=== PATIENT | female | born 1990 | race Caucasian/White ===

== ENCOUNTER 2019-10-08 08:17 | Inpatient (IN) | payer BC ==
[2019-10-08] MEDS ORDERED: hydrALAZINE 20 MG/ML VIAL SLOW IVP PRN ×2 (08:38→09:58)
[2019-10-08 09:33] VITALS: BMI 39.8
--- NOTE | 2019-10-08 09:48 | ULT ---
EXAM: US [facility] PROVIDED CLINICAL HISTORY: Estimated weight and placental location COMPARISON: None FINDINGS: Single live intrauterine gestation is documented in vertex presentation, 40 weeks 0 days by joseph friedman. Estimated weight is 3906 +/- 578 g. Placenta is anteriorly located, without evidence for previa. Cervix is not well seen. heart rate of 131 bpm is documented. anatomic survey was not performed. Amniotic fluid was not quantified. biometry: BPD 9.2 cm 37 weeks 3 days Head circumference 35.2 cm 41 weeks 0 days Abdominal circumference 36.3 cm 40 weeks 1 day Femur length 7.82 cm 40 weeks 0 days IMPRESSION: Single live intrauterine gestation as described.
[2019-10-08] MEDS ORDERED: Lidocaine 1% (PF) 30 ML VIAL SC PRN (09:58)
[2019-10-08] MEDS ORDERED: Ondansetron PF 4 MG/2 ML Vial IVP PRN ×2 (09:58→13:39)
[2019-10-08] MEDS ORDERED: Butorphanol Tartrate 1 MG/ML VIAL SLOW IVP PRN (09:58)
[2019-10-08] MEDS ORDERED: NS / Oxytocin 40 units/1000ml 1,000 ML IV PRN (09:58)
[2019-10-08] MEDS ORDERED: HYDROcodone/Acetaminophen 5/325 mg Tablet PO PRN ×2 (09:58)
[2019-10-08] MEDS ORDERED: Ibuprofen 800 MG TAB PO PRN (09:58)
[2019-10-08] MEDS ORDERED: Promethazine HCl 25 MG/ML VIAL IM PRN ×2 (09:58→13:39)
[2019-10-08] MEDS ORDERED: Methylergonovine 0.2 MG/ML VIAL IM PRN (09:58)
[2019-10-08] MEDS: Lactated Ringer's 1,000 ML IV SCH ×2 (10:15→22:24)
[2019-10-08] MEDS ORDERED: CEFAZOLIN 2 GM in Premix Bag 1 BAG IVPB SCH (10:15)
--- NOTE | 2019-10-08 10:44 | PDOC.LDHP ---
Labor and Delivery H&P Current gestational age (weeks): 42 Due date: 09/24/19 Grav: 3 Para: 2 OB History Details: #1: term primary LTCS for NRFHTs #2: Successful term of 9#10oz. #3: post-term sIUP w/ no complications thus far Current complications: other (h/o LTCS w/ successful as well as possible GDM but no 3 hour GTT for confirmation) Current medications: pre- vitamins Previous surgical history: low tranverse CS Allergies/Adverse Reactions: Allergies Allergy/AdvReac Type Severity Reaction Status Date / Time No Known Allergies Allergy Verified 10/08/19 09:04 Social history: none - Physical Exam Vital signs reviewed and normal: yes General: NAD, resting, breathing through contractions Heart: RRR Lungs: CTAB Abdomen: gravid Extremeties: no edema FHT: category 2 (periods of moderate variability), acceleration absent, late decelerations (2 late decels w/ 2 random contractions since monitoring began) - Vaginal Exam cm dilated: 3 Effacement: 25% Station: -3 - OB Labs Blood type: B RH: positive Antibody Screen: negative HIV: negative RPR: negative HEPSAg: negative 1 hour GCT: positive (169) 3 hour GTT: no 3 hour done/diet controlled per patient GBS: negative Urine drug screen: negative Rubella: immune - Assessment 29 YO @ 42 WGA presenting for IOL. - Plan Plan: admit to L&D -: sIUP @ 42 WGA: - No regular contractions noted on monitor since arrival but cat 2 strip thus far 2/2 only some periods of moderate variability since arrival. FHTs difficult to detect for long periods of time w/o interruption. SVE 02/07/high @ 0935. - Patient's vitals have remained stable since arrival. - No complications thus far in but will obtain a basic US to assess placental location, CAMILO, and EFW. - Will continue to monitor but will admit to L&D for either IOL vs. rLTCS based on pending /maternal status, sono, and laboratories. Dispo: Admit to L&D for IOL vs. rLTCS pending labs, imaging & and maternal status. Addendum - Attending - Attending Attestation Date/Time: 10/08/19 0834 I personally evaluated the patient and discussed the management with Dr. Galdamez. I agree with the History, Examination, Assessment and Plan documented above.
[2019-10-08 10:55] LABS: Amnisure Test No Membranes Rupture (No Rupture)
[2019-10-08 10:56] LABS: Amnisure Internal Control QC ACCEPTABLE (ACCEPTABLE)
[2019-10-08 11:09] LABS: Hemoglobin 12.3 g/dL (12.0-16.0); Mean Corpuscular HGB CONC 34.2 g/dL (32.0-36.0); Mean Corpuscular Hemoglobin 28.3 pg (27.0-31.0); Mean Corpuscular Volume 82.7 fL (78.0-98.0); Mean Platelet Volume 8.1 fL (7.4-10.4); Platelet Count 257 thou/uL (130-400); RBC Distribution Width 13.6 % (11.5-14.5); Red Blood Cell (RBC) Count 4.34 mill/uL (4.20-5.40)
--- NOTE | 2019-10-08 11:24 | PDOC.LDPN ---
Labor & Delivery Progress Note - Subjective Subjective: comfortable - Objective Vital signs reviewed and normal: yes General: NAD, resting Uterine fundus: non tender SVE: 02/07/high @ 0935 FHT: category 2 (periods of moderate variability but no accels since arrival w/ 2 late decels w/ 2 random contractions) [place] contractions every: no regular contractions noted Resuscitative measures: maternal IV fluids - Assessment (1) Post-term , 40-42 weeks of gestation Code(s): O48.0 - POST-TERM Current Visit: Yes Status: Acute Plan: other -: 29YO @ 42 WGA who presents to L&D for IOL for post-term . sIUP @ 42 WGA: - Only contractions noted on monitor since arrival w/ late decels noted w/ each. Persistent Cat 2 strip. SVE 02/07/high @ 0935. - Patient's vitals have remained stable since arrival. - Sono significant for low CAMILO and EFW of ~9lbs. No placenta previa. - Due to low CAMILO patient amnisure was also obtained which was negative. - Given fetus's poor response to few contractions that have been noted in conjunction with minimal variability and no accels w/ no s/s of being in active labor feel best way to proceed is with a rLTCS avoid a likely possible emergency LTCS should fetus not tolerate IOL. Possible GDM vs. glucose intolerance in : - 1hr GTT elevated at 169 but no 3hr was done for formal diagnosis. - Will monitor PP vs. intrapartum based on whether or not we proceed w/ IOL vs. rLTCS. Dispo: Counseled patient on risks & benefits of proceeding with a medical IOL vs. rLTCS and will allow she and the biological parents to discuss options & decide how to proceed.
[2019-10-08] MEDS ORDERED: Bicitra 30 ML UDCUP PO SCH (11:30)
--- NOTE | 2019-10-08 11:35 | PDOC.BPN ---
- Brief Progress Note 29YO @ 42 WGA here for post-term IOL. FHTs unchanged from prior examination w/ persistent cat 2 strip with periods of moderate variability and no accels. After a thorough discussion w/ biological parents & shredding specialist, patient elected to proceed with a CLEM rLTCS to minimize risks to both herself and the baby. Will therefore proceed with rLTCS at this time.
[2019-10-08 11:53] LABS: Syphilis Antibody Nonreactive (Nonreactive); Syphilis Antibody Index 0.03 S/CO (<1.00 Non-Reactive)
[2019-10-08 11:54] LABS: HBSAg Index 0.18 S/CO (0-0.99); Hep B Surf Ag Non-Reactive S/CO (NonReactive)
[2019-10-08] MEDS ORDERED: MORPHINE 5 MG/10 ML PF VIAL ONE (12:40)
[2019-10-08] MEDS ORDERED: Oxytocin 10 UNITS/ML VIAL ONE ×2 (12:41→13:58)
[2019-10-08] MEDS ORDERED: Dexamethasone 4 mg/ml Vial ONE (12:41)
[2019-10-08] MEDS ORDERED: ePHEDrine/0.9% NaCl/PF SYRINGE 50 mg/10 ml ONE (12:41)
[2019-10-08] MEDS ORDERED: Ondansetron PF 4 MG/2 ML Vial ONE ×2 (12:41→14:57)
[2019-10-08] MEDS ORDERED: Methylergonovine 0.2 MG/ML VIAL ONE (13:00)
[2019-10-08] MEDS ORDERED: Carboprost 250 MCG/ML AMP ONE (13:00)
[2019-10-08] MEDS ORDERED: Promethazine HCl 25 MG SUPP PR PRN (13:39)
[2019-10-08] MEDS ORDERED: diphenhydrAMINE 50 MG/ML VIAL IVP PRN (13:39)
[2019-10-08] MEDS ORDERED: Naloxone HCl 0.4 mg/ml Vial IV PRN (13:39)
[2019-10-08] MEDS ORDERED: Naloxone HCl 0.4 mg/ml Vial IVP PRN ×2 (13:39)
[2019-10-08] MEDS ORDERED: Communication Order-Pharmacy FS SCH (13:45)
[2019-10-08 14:06] LABS: Actual Bicarbonate (HCO3a) 16.5 mEq/L (22-28); Base Excess (BEa) -12.5 mEq/L (-2.0 to +3.0)
[2019-10-08 14:08] LABS: Actual Bicarbonate (HCO3v) 18 mEq/L (22-28); Base Excess -12.1 mEq/L (-2.0 to +3.0)
[2019-10-08 14:09] LABS: pH (Cord, venous) 7.13 (7.32-7.43)
[2019-10-08] MEDS ORDERED: Promethazine HCl 25 MG/ML VIAL ONE (15:13)
[2019-10-08] MEDS ORDERED: Ketorolac Tromethamine 30 MG/ML VIAL ONE (15:38)
--- NOTE | 2019-10-08 16:16 | OP ---
DATE OF PROCEDURE: 10/08/2019 PREOPERATIVE DIAGNOSES: 1. A 42-week intrauterine . 2. Previous section x1. 3. Nonreassuring status. 4. Anhydramnios. POSTOPERATIVE DIAGNOSES: 1. A 42-week intrauterine . 2. Previous section x1. 3. Nonreassuring status. 4. Anhydramnios. 5. Dense pelvic adhesions. 6. Meconium-stained amniotic fluid. PROCEDURES PERFORMED: 1. Repeat low-transverse section. 2. Lysis of adhesions. DOUGH MIXING MACHINE OPERATOR: Leatha Galdamez MD. ANESTHESIA: Spinal. COMPLICATIONS: None. QUANTITATIVE BLOOD LOSS: 477ml INDICATIONS: The patient presented to Labor and Delivery from [facility] for 42-week induction with a history of previous x1, desiring a TOLAC. The patient is a surrogate. Upon arrival, she was placed on the monitor and the baby was noted to have spontaneous late decelerations with contractions. Ultrasound was performed, which showed anhydramnios. Due to these findings, it was recommended to proceed with a repeat low-transverse section rather than induction. DESCRIPTION OF PROCEDURE: The patient was taken to the operating room, where spinal anesthesia was attained without difficulty. She was prepared and draped in normal sterile fashion in the dorsal supine position with a leftward tilt. A Pfannenstiel skin incision was made with a scalpel and carried down to the underlying layer of fascia. The fascia was incised in the midline and extended laterally with Flores scissors. The fascia was dissected off the rectus muscle sharply. The rectus muscles were in the midline and the peritoneum was identified and entered. There were dense adhesions of the anterior uterus to the anterior abdominal wall, which were cut down sharply and tied with free ties. The bladder was visualized and then filmy adhesions were dissected down as well. Blake O retractor was placed in the abdomen. A lower uterine segment was incised in a transverse fashion with the scalpel. The incision was extended with cephalocaudal traction. The 's head was delivered atraumatically followed by the body. The cord was clamped and cut and the was handed off to the awaiting NICU team. Cord segment was collected for cord gas and the placenta was delivered spontaneously. The uterus was cleared of all clots and debris. The uterine incision was repaired in a running locked fashion with Monocryl in 2 layers with good hemostasis. The abdomen was thoroughly irrigated. The area of the adhesions on the anterior uterus was cauterized and then FloSeal was added for extra hemostasis. The fascia was repaired in a running fashion with 0 PDS. The subcutaneous tissue was reapproximated with plain gut and the skin was closed with 4-0 Monocryl. The patient tolerated the procedure well. Sponge, lap, and needle counts were correct x2. The patient was taken to the recovery room in stable condition. Job ID: [id number] [facility]
[2019-10-08] MEDS: Ketorolac Tromethamine 30 MG/ML VIAL IVP PRN (16:20)
[2019-10-08] MEDS ORDERED: Scopolamine 1.5 mg/72 hour Patch TD SCH (16:30)
[2019-10-08 16:42] LABS: Amphetamine Not Detected (NotDetected); Barbiturates Screen Not Detected (NotDetected); Benzodiazepine Screen Not Detected (NotDetected); Cocaine Metabolite Screen Not Detected (NotDetected); Medtox Control Line Valid? VALID (VALID); Medtox Reader # READER 1; Methadone Not Detected (NotDetected); Methamphetamine Not Detected (NotDetected); Opiate Screen Not Detected (NotDetected); Oxycodone Screen Not Detected (NotDetected); Phencyclidine (PCP) Not Detected (NotDetected); THC/Cannabinoid Screen Detected (NotDetected); Tricyclic Screen Not Detected (NotDetected)
[2019-10-08] MEDS ORDERED: Lanolin Ointment 7 GM TUBE TOP PRN (17:05)
[2019-10-08] MEDS: Docusate Calcium (SURFAK) 240 MG CAP PO SCH (22:24)
[2019-10-09] MEDS: Ketorolac Tromethamine 30 MG/ML VIAL IVP PRN (00:20)
[2019-10-09] MEDS ORDERED: Butorphanol Tartrate 1 MG/ML VIAL SLOW IVP PRN (01:45)
[2019-10-09] MEDS ORDERED: Acetaminophen/Codeine 30-300mg Tablet PO PRN (01:45)
[2019-10-09] MEDS: Lactated Ringer's 1,000 ML IV SCH ×3 (04:16→18:24)
[2019-10-09 05:22] LABS: Hemoglobin 10.8 g/dL (12.0-16.0); Mean Corpuscular HGB CONC 33.9 g/dL (32.0-36.0); Mean Corpuscular Hemoglobin 28.8 pg (27.0-31.0); Mean Corpuscular Volume 84.8 fL (78.0-98.0); Mean Platelet Volume 8.5 fL (7.4-10.4); Platelet Count 233 thou/uL (130-400); RBC Distribution Width 13.6 % (11.5-14.5); Red Blood Cell (RBC) Count 3.74 mill/uL (4.20-5.40); White Blood Cell (WBC) Count 18.5 thou/uL (4.8-10.8)
--- NOTE | 2019-10-09 07:51 | PDOC.PP ---
Post Progress Note Post Day #: 1 Subjective: Patient reports feeling well this AM. Was very nauseous overnight requiring a scopolamine patch for relief but has been tolerating fluids & bland foods PO since early this AM. Reports pain is well-controlled. Ambulating normally but not yet voiding since melchor still in place. Passing gas but no BM. Pumping breastmilk for baby & states that is going well. States bleeding is menu planner than a period & denies passing any large clots. PO intake tolerated: yes Flatus: yes Ambulation: yes Vital Signs (12 hours) Temp Pulse Resp BP Pulse Ox 10/09/19 03:15 98.5 F 67 16 107/56 L 10/09/19 00:20 97.8 F 76 16 104/50 L 10/08/19 20:00 97.5 F L 66 16 111/55 L 96 Weight Weight 105.233 kg - Physical Examination General: NAD Cardiovascular: no m/r/g, RRR Respiratory: clear to auscultation bilaterally, non-labored breathing Abdominal: + bowel sounds, lochia, no distention, appropriately TTP Fundus firm & at: umbilicus Extremities: negative homans (B) Skin: CS incision dry & intact, no rash Neurological: no gross focal deficits Psychiatric: A&Ox3, normal affect Result Diagrams: 10/09/19 04:18 Additional Labs: Post Labs Blood Type B POSITIVE 10/08/19 12:07 Hep Bs Antigen Non-Reactive S/CO (NonReactive) 10/08/19 10:36 (1) Post-term , 40-42 weeks of gestation Code(s): O48.0 - POST-TERM Status: Resolved (2) S/P repeat low transverse Code(s): Z98.891 - HISTORY OF UTERINE SCAR FROM PREVIOUS SURGERY Status: Acute (3) Acute blood loss anemia Code(s): D62 - ACUTE POSTHEMORRHAGIC ANEMIA Status: Acute - Assessment/Plan 29YO who is PP day #1 s/p rLTCS for NRFHTs @ 42 WGA. s/p r LTCS day #1: - Ambulating normally, tolerating PO, & passing flatus but no BM yet. Pain well- controlled. Bleeding minimal & incision site clean, dry & intact. - Continue routine post-C/S care w/ likely anticipated d/c home tomorrow pending clinical course. acute blood loss anemia: - QBL of 578mL since delivery w/ H/H drop from 12.3/35.9 to 10.8/31.7 this AM. Patient asymptomatic. - Will continue to monitor vitals & continue PNVs & PO iron PP. Glucose intolerance in vs. GDM: - Patient has been receiving Q12H accuchecks since admission. First 2 low but latest mildly elevated at 120. Will discontinue. THC positive UDS: - UDS + for THC. Will notify nursery in case needs testing but no need to consult CM as will be going to live with biological parents. Dispo: Continue routine PP C/S care w/ likely d/c home tomorrow pending clinical course. Addendum - Attending - Attending Attestation Date/Time: 10/11/19 4055 I personally evaluated the patient and discussed the management with Dr. Galdamez. I agree with the History, Examination, Assessment and Plan documented above.
[2019-10-09] MEDS ORDERED: FLU VACC QS2019-20(6MOS UP)/PF 60 MCG/0.5 ML SYRINGE IM ONE (09:00)
[2019-10-09] MEDS ORDERED: Adacel (T-DAP) 0.5 ML SYRINGE IM ONE (09:00)
[2019-10-09] MEDS: Docusate Calcium (SURFAK) 240 MG CAP PO SCH ×2 (09:13→21:14)
[2019-10-09] MEDS: Simethicone Chewable 80 MG TAB PO PRN ×2 (09:13→18:05)
[2019-10-09] MEDS: Prenatal Vitamin 1 TAB PO SCH (09:13)
[2019-10-09] MEDS: Ibuprofen 800 MG TAB PO SCH ×2 (15:00→21:14)
[2019-10-09] MEDS: Acetaminophen/Codeine 30-300mg Tablet PO PRN ×2 (16:14→21:13)
[2019-10-09] MEDS: Ferrous Sulfate 325 MG TAB PO SCH (18:05)
[2019-10-10] MEDS: Lactated Ringer's 1,000 ML IV SCH ×2 (04:01→10:18)
[2019-10-10] MEDS: Ibuprofen 800 MG TAB PO SCH (05:12)
--- NOTE | 2019-10-10 06:42 | PDOC.PP ---
Post Progress Note Post Day #: POD2 Subjective: Tolerating regular diet, wants to go home. PO intake tolerated: yes Flatus: yes Ambulation: yes Vital Signs (12 hours) Temp Pulse Resp BP Pulse Ox 10/10/19 05:10 98.6 F 75 18 102/58 L 10/10/19 00:00 98.3 F 72 18 96/54 L 93 L 10/09/19 21:00 98.3 F 88 20 112/57 L 96 Weight Weight 105.233 kg - Physical Examination General: NAD Respiratory: non-labored breathing Abdominal: no distention, appropriately TTP Skin: CS incision dry & intact Psychiatric: normal affect Result Diagrams: 10/09/19 04:18 Additional Labs: Post Labs Blood Type B POSITIVE 10/08/19 12:07 Hep Bs Antigen Non-Reactive S/CO (NonReactive) 10/08/19 10:36 - Assessment/Plan Doing well. DC home per pt. request. Precautions reviewed. RTC 2 weeks with [facility].
[2019-10-10] MEDS: Ferrous Sulfate 325 MG TAB PO SCH (08:19)
[2019-10-10] MEDS: Prenatal Vitamin 1 TAB PO SCH (08:33)
[2019-10-10] MEDS: Docusate Calcium (SURFAK) 240 MG CAP PO SCH (08:33)
[2019-10-10] MEDS: Acetaminophen/Codeine 30-300mg Tablet PO PRN (08:34)
[2019-10-10 08:37] VITALS: BP 115/57; TEMP 97.6
== END 2019-10-10 10:40 | disposition home or self-care (01) | DRG 787 ==
LOC: L&D/OP 08:17 → L&D 09:58 → 3SW 17:50
PROVIDERS: ADMIT Obstetrics & Gynecology; ATTEND Obstetrics & Gynecology
PROC: 10D00Z1 Extraction of Products of Conception, Low, Open Approach (ICD-10-PCS; principal; 2019-10-08)
PROC: 10907ZC Drainage of Amniotic Fluid, Therapeutic from Products of Conception, Via Natural or Artificial Opening (ICD-10-PCS; 2019-10-08)
DX: O48.0 Post-term pregnancy (principal); D62 Acute posthemorrhagic anemia; Z3A.42 42 weeks gestation of pregnancy; Z37.0 Single live birth; O76 Abnormality in fetal heart rate and rhythm complicating labor and delivery; O34.211 Maternal care for low transverse scar from previous cesarean delivery; O77.0 Labor and delivery complicated by meconium in amniotic fluid; O90.81 Anemia of the puerperium
CPT/HCPCS: 36415; 36416; 51702; 76815; 80306; 82805; 84112; 85027; 86780; 86850; 86900; 86901; 87340; 88307; 99285; J0690; J1100; J1885; J2210; J2274; J2405; J2550; J2590; J3490